=== PATIENT | female | born 1955 | race Caucasian/White ===

== ENCOUNTER → 2016-05-04 | Day surgery (SDC) | payer OTHER ==
[~2016-05-04] MED LIST: Buffered Lidocaine 1% SYR 3ML* 3 ML/SYR SYRINGE INTRADERM ONE; Buffered Lidocaine 1% SYR 3ML* 3 ML/SYR SYRINGE ONE; Bupivacaine 0.25% SDV* 30 ML ONE; Dexamethasone IV* 4 MG/ML 1 ML (4 MG) ONE; EPHEDrine (Pressors)* 50 MG/ML VIAL ONE; Famotidine IV* 10 MG/ML 2 ML (20 mg) IV ONE; Famotidine IV* 10 MG/ML 2 ML (20 mg) ONE; KETAMINE HCL* 50 MG/ML 10 ML VIAL ONE; Ketorolac INJ* 30 MG/ML 1 ML VIAL ONE; Lidocaine 1% INJ* 10 MG/ML 30 ML SDV ONE; Midazolam* 1 MG/ML 5 ML VIAL (5 MG) ONE; Morphine INJ* 2 MG/ML 1 ML CARPUJECT IV PRN; Ondansetron INJ* 2 MG/ML VIAL ONE; PROCHLORPERAZINE INJ 5 MG/ML 2 ML VIAL IV PRN; Propofol* 10 MG/ML 20 ML BTL IV PUSH ONE; fentaNYL* 50 MCG/ML 2 ML VIAL (100 MCG VIAL) IV PRN; fentaNYL* 50 MCG/ML 2 ML VIAL (100 MCG VIAL) ONE; oxyCODONE/Acetamin 5/325 MG* TAB PO PRN
[2016-05-04 11:57] VITALS: BP 117/83
--- NOTE | 2016-05-06 12:04 | OP ---
DATE OF OPERATION: 05/04/16 - [facility] DATE OF : 57 SURGEON: Dr. Rojas. ANESTHESIOLOGIST: Dr. Oneal ANESTHESIA: General endotracheal. PRE-OP DIAGNOSIS: Persistent left Bartholin's duct cyst. POST-OP DIAGNOSIS: Persistent left Bartholin's duct cyst. OPERATIVE PROCEDURE: Left Bartholin's duct cyst marsupialization and biopsy of cyst. ESTIMATED BLOOD LOSS: 30 cc. URINE OUTPUT: Not measured. IV FLUIDS: 1100 cc lactated Ringer's. MATERIALS TO LAB: Biopsy of cyst wall. COMPLICATIONS: None. INDICATIONS: This patient was a 60-year-old 1, para 2, who presented to the clinic last month, referred for a persistent 3 to 4 cm left Bartholin's duct cyst. This had been incised and drained by a previous provider about 2 months earlier, but without any Word catheter or marsupialization performed, so it quickly re-formed after it healed. The patient desired to have a more permanent solution performed. We discussed the options and she desired to proceed with marsupialization. FINDINGS: Approximately 3 to 4 cm left Bartholin's duct cyst. This was filled with a thin fluid which was dark red/brown. The cyst wall was visualized and appeared very smooth and a portion of the wall was biopsied. DESCRIPTION OF PROCEDURE: The risks, benefits, and alternatives were described to the patient and informed consent was obtained. The patient was taken to the operating room with IV running where general anesthesia was induced and found to be adequate. The patient was prepped and draped in the normal sterile fashion in the high [facility]. A time-out was performed. The left Bartholin's duct cyst was palpated and examined under anesthesia. An Allis clamp was used to grasp the hymenal ring and pull it outward so the inner aspect was exposed. An approximately 2.5 cm incision was then made with a 15 blade scalpel after injecting 1% lidocaine over the incision site. This was carried down to the wall of the cyst which was then incised, productive of a significant amount of thin dark fluid. The incision was extended until there was a full 2 to 2.5 cm of cyst opening. The cyst was irrigated and cleaned out. The base of the cyst was grasped with an Allis clamp and a small portion was biopsied. The cyst wall was then sutured to the vaginal epithelium on the inner and outer aspects of the incision. This was done with 3-0 Polysorb in interrupted stitches. The Bovie was used sparingly for a few areas which had some light bleeding. Once the incision sites were sutured over, the bleeding was scant. The procedure was then complete. The patient was cleaned and then returned to the supine position. The patient tolerated the procedure well. Sponge, lap, and needle counts were correct x2. [id number]/[facility] #: [id number] [facility]
== END | disposition home or self-care (01) ==
LOC: OR 07:37
PROVIDERS: ATTEND Obstetrics & Gynecology
DX: N75.0 Cyst of Bartholin's gland (principal)
CPT/HCPCS: 88304; J1100; J1885; J2250; J2405; J2704; J3010

== ENCOUNTER 2016-10-31 19:14 | Emergency (ER) | payer OTHER ==
[2016-10-31 19:30] VITALS: BP 122/83
--- NOTE | 2016-10-31 19:33 | UC ---
Skin Complaint HPI - HPI Summary HPI Summary: 61 YEAR OLD FEMALE PRESENTS WITH A BULLS EYE RASH ON HER LEFT ALCALA SECONDARY TO A TICK BITE. - History of Current Complaint Chief Complaint: UCRash Time Seen by Provider: 10/31/16 19:30 Stated Complaint: TICK BITE RASHES Hx Last Menstrual Period: - Allergy/Home Medications Allergies/Adverse Reactions: Allergies Allergy/AdvReac Type Severity Reaction Status Date / Time Molds & Smuts Allergy Intermediate Congestion Verified 10/31/16 19:30 Pollen Extract Allergy Intermediate Congestion Verified 10/31/16 19:30 Sulfa Drugs Allergy Intermediate Rash And Verified 10/31/16 19:30 Itching Penicillins [PCN] Allergy Nausea And Verified 10/31/16 19:30 Vomiting Review of Systems Constitutional: Negative Skin: Rash, Other - LEFT ALCALA Eyes: Negative ENT: Negative Respiratory: Negative Cardiovascular: Negative Gastrointestinal: Negative Genitourinary: Negative Motor: Negative Neurovascular: Negative Musculoskeletal: Negative Neurological: Negative Psychological: Negative All Other Systems Reviewed And Are Negative: Yes PMH/Surg Hx/FS Hx/Imm Hx Previously Healthy: Yes - Surgical History Surgical History: Yes Surgery Procedure, Year, and Place: 1989-LEFT FOOT NEUROMA. PROCEDURE FOR BARTHOLIN CYST-03/2016 - Social History Alcohol Use: Rare Substance Use Type: None Smoking Status (MU): Never Smoked Tobacco Physical Exam Triage Information Reviewed: Yes Vital Signs: Initial Vital Signs Temp 36.5 C 10/31/16 19:26 Pulse 92 10/31/16 19:26 Resp 16 10/31/16 19:26 BP 122/83 10/31/16 19:26 Pulse Ox 98 10/31/16 19:26 Eye Exam: Normal ENT Exam: Normal Dental Exam: Normal Neck exam: Normal Neck: Positive: 1 Respiratory Exam: Normal Cardiovascular Exam: Normal Abdominal Exam: Normal Musculoskeletal Exam: Normal Neurological Exam: Normal Psychological Exam: Normal Skin Exam: Normal Skin: Positive: rashes, Other - LEFT ALCALA Course/Dx - Diagnoses Provider Diagnoses: TICK BITE. RASH Discharge - Discharge Plan Condition: Stable Disposition: HOME Prescriptions: DOXYcycline CAP(*) [DOXYcycline 100MG CAP(*)] 100 mg PO BID #56 cap Patient Education Materials: Tick Bite (ED), Lyme Disease (ED), Insect Bite or Sting (ED) Referrals: Orlin Moon MD [Primary Care Provider] -
--- NOTE | 2016-11-02 16:34 | ED ---
Progress - Progress Note Progress Note: Pt's lyme serology neg Pt call pt and update results Please advise pt to f/u with PCP regarding ongoing treatment with doxy Tammie 11/02/16 [id number] Course/Dx - Diagnoses Provider Diagnoses: Rash
== END 2016-10-31 19:40 | disposition home or self-care (01) ==
LOC: UCEAST 19:14
DX: S80.862A Insect bite (nonvenomous), left lower leg, initial encounter (principal); W57.XXXA Bitten or stung by nonvenomous insect and other nonvenomous arthropods, initial encounter; Y93.9 Activity, unspecified; Y92.9 Unspecified place or not applicable; Y99.9 Unspecified external cause status; R21 Rash and other nonspecific skin eruption
CPT/HCPCS: 86618; 99212; G0463

== ENCOUNTER 2019-03-21 13:38 | Emergency (ER) | payer OTHER ==
[2019-03-21 13:45] VITALS: BP 123/81
--- NOTE | 2019-03-21 13:52 | UC ---
Complaint Female HPI - HPI Summary HPI Summary: 63 yo female presents with UTI symptoms. She tells me that for the last 2 days she has had burning with urination, bladder pressure, and urinary frequency. She has had many UTIs in the past and states this feels the same. No hx of kidney stones. She denies abdominal pain, n/v, flank pain, vaginal bleeding or discharge. - History Of Current Complaint Chief Complaint: UCGU Stated Complaint: FREQUENT URINATON Time Seen by Provider: 03/21/19 13:52 Hx Obtained From: Patient Hx Last Menstrual Period: Onset/Duration: Sudden Onset Severity Initially: Mild Severity Currently: Moderate Pain Intensity: 6 Pain Scale Used: 0-10 Numeric - Allergies/Home Medications Allergies/Adverse Reactions: Allergies Allergy/AdvReac Type Severity Reaction Status Date / Time doxycycline Allergy GI Upset Verified 03/21/19 13:49 metronidazole [From Flagyl] Allergy GI Upset Verified 03/21/19 13:48 Penicillins Allergy nausea Verified 03/21/19 13:48 vomiting pollen extracts Allergy Congestion Verified 03/21/19 13:48 Sulfa (Sulfonamide Allergy rash and Verified 03/21/19 13:48 Antibiotics) itch molds and smuts Allergy Congestion Uncoded 03/21/19 13:48 Home Medications: Home Medications Levothyroxine TAB* [Synthroid 25 MCG TAB*] 1 tab PO BID 03/21/19 [History Confirmed 03/21/19] Liothyronine TAB* [Cytomel TAB*] 5 mcg PO DAILY 03/21/19 [History Confirmed ] PMH/Surg Hx/FS Hx/Imm Hx Endocrine History: Hypothyroidism - Surgical History Surgical History: Yes Surgery Procedure, Year, and Place: 1989-LEFT FOOT NEUROMA. PROCEDURE FOR BARTHOLIN CYST-03/2016 - Family History Known Family History: Positive: Non-Contributory - Social History Lives: With Family Alcohol Use: Rare Substance Use Type: None Smoking Status (MU): Never Smoked Tobacco Review of Systems All Other Systems Reviewed And Are Negative: No Constitutional: Positive: Negative Skin: Positive: Negative Respiratory: Positive: Negative Cardiovascular: Positive: Negative Gastrointestinal: Positive: Negative Genitourinary: Positive: Dysuria Neurovascular: Positive: Negative Neurological: Positive: Negative Psychological: Positive: Negative Physical Exam - Summary Physical Exam Summary: GENERAL: NAD. WDWN. No pain distress. SKIN: No rashes, sores, lesions, or open wounds. NECK: Supple. Nontender. No lymphadenopathy. CHEST: CTAB. No r/r/w. No accessory muscle use. Breathing comfortably and in no distress. CV: RRR. Pulses intact. Cap refill <2seconds ABDOMEN: Soft. NTTP. No distention or guarding. No CVA tenderness. Bowel sounds present NEURO: Alert. PSYCH: Age appropriate behavior. Triage Information Reviewed: Yes Vital Signs: Initial Vital Signs Temp 96.8 F 03/21/19 13:41 Pulse 82 03/21/19 13:41 Resp 17 03/21/19 13:41 BP 123/81 03/21/19 13:41 Pulse Ox 100 03/21/19 13:41 Laboratory Tests 03/21/19 14:22 POC Urine Color Light yellow POC Urine Clarity Clear POC Urine pH 5.5 POC Ur Specif [place] <= 1.005 L POC Urine Protein Negative POC Ur Glucose (UA) Negative POC Urine Ketones Negative POC Urine Blood 3+ A POC Urine Nitrite Negative POC Urine Bilirubin Negative POC Urine Urobilinogen 0.2 POC U Leukocyte Esteras Negative Vital Signs Reviewed: Yes Complaint Female Dx - Course Course Of Treatment: UA with 3+ blood, but no leuks or nit. Discussed with pt and she states her symptoms feel the same as when she has a UTI. Will treat with macrobid at this time and send her urine for culture and adjust treatment as needed based on results. She has never seen Urology in the past - discussed that if urine culture is negative and she is still symptomatic, may refer her to Urology for further eval. - Differential Dx/Diagnosis Provider Diagnosis: Dysuria Discharge ED - Sign-Out/Discharge Documenting (check all that apply): Patient Departure All imaging exams completed and their final reports reviewed: No Studies - Discharge Plan Condition: Stable Disposition: HOME Prescriptions: Fluconazole 150 MG TAB* [Diflucan 150 MG TAB*] 150 mg PO ONCE #2 tablet Nitrofurantoin Monohyd/M-Cryst [Macrobid 100 mg Capsule] 100 mg PO BID #10 cap Patient Education Materials: Dysuria (ED) Referrals: Orlin Moon MD [Primary Care Provider] - Additional Instructions: If you develop a fever, shortness of breath, chest pain, new or worsening symptoms - please call your PCP or go to the ED immediately. - Billing Disposition and Condition Condition: STABLE Disposition: Home - Attestation Statements Provider Attestation: Per institutional requirements, I have reviewed the chart, however, I was not consulted specifically or made aware of this patient by the midlevel provider. I did not personally evaluate, interact with , or disposition this patient.
--- NOTE | 2019-03-23 15:02 | UC ---
- Progress Note Progress Note: Urine culture negative. Please call pt and if her urine symptoms have not resolved with anbx - recommend f/u with Urology as discussed at visit. Course/Dx - Diagnoses Provider Diagnoses: Dysuria Discharge ED - Sign-Out/Discharge Documenting (check all that apply): Post-Discharge Follow Up All imaging exams completed and their final reports reviewed: No Studies - Discharge Plan Condition: Stable Disposition: HOME Prescriptions: Fluconazole 150 MG TAB* [Diflucan 150 MG TAB*] 150 mg PO ONCE #2 tablet Nitrofurantoin Monohyd/M-Cryst [Macrobid 100 mg Capsule] 100 mg PO BID #10 cap Patient Education Materials: Dysuria (ED) Referrals: Orlin Moon MD [Primary Care Provider] - Additional Instructions: If you develop a fever, shortness of breath, chest pain, new or worsening symptoms - please call your PCP or go to the ED immediately. - Billing Disposition and Condition Condition: STABLE Disposition: Home
== END 2019-03-21 14:51 | disposition home or self-care (01) ==
LOC: UCEAST 13:38
DX: R30.0 Dysuria (principal); E03.9 Hypothyroidism, unspecified; Z88.0 Allergy status to penicillin; Z88.1 Allergy status to other antibiotic agents; Z88.2 Allergy status to sulfonamides; Z91.09 Other allergy status, other than to drugs and biological substances; Z79.890 Hormone replacement therapy
CPT/HCPCS: 81003; 87086; 99212; G0463

== ENCOUNTER 2019-03-23 16:18 | Emergency (ER) | payer OTHER ==
[2019-03-23] MEDS ORDERED: NS 0.9% 1000 ML** 1,000 ML IV ONE (16:31)
--- NOTE | 2019-03-23 16:31 | ED ---
Back Pain - HPI Summary HPI Summary: Pt. is a 63 y.o female who presents to the ER for left flank/abd. pain that started today. Pt. states she had dysuria 2 days ago and was seen at and started on Macrobid for UTI. U/A showed RBCs. Urine culture negative. Pt. states today she developed severe left sided flank pain that radiated to LLQ. Associated sxs of nausea without vomiting. Denies chest pain, SOB. Past hx of hypothyroidism. Sxs are moderate in severity. No current modifying factors. - History of Current Complaint Chief Complaint: EDFlankPain Stated Complaint: ABD AND BACK PAIN PER PT Time Seen by Provider: 03/23/19 16:25 Hx Obtained From: Patient Hx Last Menstrual Period: Pain Intensity: 10 - Allergies/Home Medications Allergies/Adverse Reactions: Allergies Allergy/AdvReac Type Severity Reaction Status Date / Time doxycycline Allergy GI Upset Verified 03/23/19 16:24 metronidazole [From Flagyl] Allergy GI Upset Verified 03/23/19 16:24 Penicillins Allergy nausea Verified 03/23/19 16:24 vomiting pollen extracts Allergy Congestion Verified 03/23/19 16:24 Sulfa (Sulfonamide Allergy rash and Verified 03/23/19 16:24 Antibiotics) itch molds and smuts Allergy Congestion Uncoded 03/21/19 13:48 PMH/Surg Hx/FS Hx/Imm Hx Previously Healthy: Yes Endocrine/Hematology History: 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 Denies: Hx Diabetes Cardiovascular History: Denies: Hx Hypertension, Hx Pacemaker/ICD Respiratory History: Denies: Hx Asthma, Hx Chronic Obstructive Pulmonary Disease (COPD) GI History: Denies: Hx Ulcer Musculoskeletal History: Reports: Hx Arthritis - OSTEO-HIPS, Hx Bursitis - HIPS AT TIMES, Hx Scoliosis Sensory History: Reports: Hx Contacts or Glasses - GLASSES Denies: Hx Hearing Aid Opthamlomology History: Reports: Hx Contacts or Glasses - GLASSES Neurological History: Denies: Hx Headaches, Other Neuro Impairments/Disorders - Surgical History Surgery Procedure, Year, and Place: 1989-LEFT FOOT NEUROMA. PROCEDURE FOR BARTHOLIN CYST-03/2016 Hx Anesthesia Reactions: No Infectious Disease History: No Infectious Disease History: Denies: Hx Hepatitis, Hx Human Immunodeficiency Virus (HIV), Traveled Outside the [place] in Last 30 Days - Family History Known Family History: Positive: Non-Contributory - Social History Occupation: Employed Full-time Lives: With Family Alcohol Use: Rare Substance Use Type: Reports: None Smoking Status (MU): Never Smoked Tobacco Review of Systems Constitutional: Negative Negative: Fever ENT: Negative Cardiovascular: Negative Negative: Palpitations, Chest Pain Respiratory: Negative Negative: Shortness Of Breath, Cough Positive: Abdominal Pain, Nausea. Negative: Vomiting, Diarrhea Positive: dysuria, flank pain. Negative: hematuria Neurological: Negative All Other Systems Reviewed And Are Negative: Yes Physical Exam Triage Information Reviewed: Yes Vital Signs On Initial Exam: Initial Vitals Temp Pulse Resp BP Pulse Ox 98.4 F 68 16 133/86 95 03/23/19 16:20 03/23/19 16:20 03/23/19 16:20 03/23/19 16:20 03/23/19 16:20 Vital Signs Reviewed: Yes Appearance: Positive: Pain Distress - Pt. lying on right side in bed, appears in pain but nontoxic. present. Skin: Positive: Warm, Dry Head/Face: Positive: Normal Head/Face Inspection Eyes: Positive: Normal, EOMI Neck: Positive: Supple Respiratory/Lung Sounds: Positive: Clear to Auscultation, Breath Sounds Present Cardiovascular: Positive: Normal, RRR Abdomen Description: Positive: CVA Tenderness (R) Neurological: Positive: Normal, CN Intact II-III Psychiatric: Positive: Affect/Mood Appropriate Procedures - Sedation Patient Received Moderate/Deep Sedation with Procedure: No Diagnostics - Vital Signs Vital Signs Temp Pulse Resp BP Pulse Ox 03/23/19 16:20 98.4 F 68 16 133/86 95 - Laboratory Result Diagrams: 03/23/19 16:43 03/23/19 16:43 Lab Statement: Any lab studies that have been ordered have been reviewed, and results considered in the medical decision making process. Back Pain Course/Dx - Course Course Of Treatment: Pt. with left flank pain and dysuria. Afebrile. Urine culture negative. Suspect urolithiasis. Pain medication and fluids ordered. Will obtain labs, u/a and CT scan. CT pr radiology: Impression: LEFT NEPHROLITHIASIS INCLUDING A 0.3 CM LEFT UVJ STONE WITH MINIMAL LEFT HYDROURETER. 1718: Pt. feeling much better. CBC unremarkable. Pending CMP and U /A. Pt. will be signed out to Tobias Gonzalez, PAC. - Diagnoses Differential Diagnosis/HQI/PQRI: Positive: Fracture, Herniated Disc, Renal Colic , Strain, Sprain Provider Diagnoses: Urolithiasis Discharge ED - Sign-Out/Discharge Documenting (check all that apply): Sign-Out Patient Signing out patient TO: Tobias Gonzalez - Discharge Plan Condition: Improved Disposition: HOME Patient Education Materials: Kidney Stones (ED) Referrals: Orlin Moon MD [Primary Care Provider] - Salazar Mejias MD [Medical Doctor] - Additional Instructions: Follow up with urology if symptoms do not improve within one week Increase fluids Medication as directed Strain urine Return to ER for uncontrollable pain, vomiting, fever, or if concerned - Billing Disposition and Condition Condition: IMPROVED Disposition: Home - Attestation Statements Provider Attestation: I was available for consult. This patient was seen by the WALTER. The patient was not presented to, seen by, or examined by me. Osei Gaspar MD
[2019-03-23] MEDS ORDERED: Ondansetron INJ* 2 MG/ML VIAL IV ONE (16:32)
[2019-03-23] MEDS ORDERED: Ketorolac INJ* 30 MG/ML 1 ML VIAL IV PUSH ONE (16:32)
[2019-03-23] MEDS ORDERED: Morphine 4 MG/ML VIAL (1 ml) 4 MG/ML VIAL IV ONE (16:32)
[2019-03-23 17:00] LABS: ABS Basophils 0.1 10^3/ul (0-0.2); ABS Eosinophils 0.3 10^3/ul (0-0.6); ABS Lymphocytes 2.1 10^3/ul (1.0-4.8); ABS Monocytes 0.5 10^3/ul (0-0.8); Eosinophil % 3.6 %; Hematocrit 39 % (35-47); Hemoglobin 13.4 g/dL (12.0-16.0); Lymphocyte % 30.5 %; Mean Corpuscular HGB Conc 35 g/dL (31-36); Mean Corpuscular Hemoglobin 31 pg (27-31); Mean Corpuscular Volume 87 fL (80-97); Mean Platelet Volume 7.8 fL (7.4-10.4); Nucleated Red Blood Cells % 0.1; Platelet Count 240 10^3/uL (150-450); Red Cell Distribution Width 14 % (10-15)
[2019-03-23 17:17] LABS: ALT 18 U/L (7-52); AST 19 U/L (13-39); Albumin/Globulin Ratio 1.6 (1-3); Alkaline Phosphatase 54 U/L (34-104); Anion Gap 7 mmol/L (2-11); Blood Urea Nitrogen 12 mg/dL (6-24); C Reactive Protein < 1.00 mg/L (<8.01); CO2 Carbon Dioxide 25 mmol/L (22-32); Calcium 9.1 mg/dL (8.6-10.3); Chloride 105 mmol/L (101-111); EGFR African American 80.9 (>60); EGFR Non-African American 66.9 (>60); Globulin 2.5 g/dL (2-4); Glucose 108 mg/dL (70-100); Potassium 3.5 mmol/L (3.5-5.0); Sodium 137 mmol/L (135-145); Total Protein 6.5 g/dL (6.4-8.9)
--- NOTE | 2019-03-23 17:30 | ED ---
Progress - Progress Note Progress Note: Urinalysis returned showing no evidence of UTI. Patient was stable and discharged home. Patient was given prescription for Zofran, tamsulosin, Vicodin. Patient was told to follow up with urology within 1 week. Course/Dx - Course Course Of Treatment: Pt. with left flank pain and dysuria. Afebrile. Urine culture negative. Suspect urolithiasis. Pain medication and fluids ordered. Will obtain labs, u/a and CT scan. CT pr radiology: Impression: LEFT NEPHROLITHIASIS INCLUDING A 0.3 CM LEFT UVJ STONE WITH MINIMAL LEFT HYDROURETER. 1718: Pt. feeling much better. CBC unremarkable. Pending CMP and U /A. Pt. will be signed out to MARIANO Olivia. - Diagnoses Provider Diagnoses: Urolithiasis Discharge ED - Sign-Out/Discharge Documenting (check all that apply): Patient Departure - Discharge Plan Condition: Improved Disposition: HOME Prescriptions: Hydrocodone/Acetaminophen [Hydrocodone-Acetamin 5-325 mg] 1 each PO Q6HR #12 tablet MDD 4 Ondansetron ODT TAB* [Zofran 4 MG Odt TAB*] 4 mg PO Q6H PRN #12 tab.odt PRN Reason: Nausea Tamsulosin CAP* [Flomax CAP*] 0.4 mg PO DAILY #5 cap Patient Education Materials: Kidney Stones (ED) Referrals: Orlin Moon MD [Primary Care Provider] - Salazar Mejias MD [Medical Doctor] - 4 Days Additional Instructions: Follow up with urology if symptoms do not improve within one week Increase fluids Medication as directed Strain urine Return to ER for uncontrollable pain, vomiting, fever, or if concerned Take 600mg ibuprofen every 6 hours as needed for pain. For pain that is not controlled with ibuprofen please take one tab of hydrocodone/acetaminophen every 6 hours as needed. - Billing Disposition and Condition Condition: IMPROVED Disposition: Home
[2019-03-23 18:30] LABS: Urine Appearance Clear; Urine Bilirubin Negative (Negative); Urine Blood 2+ (Negative); Urine Color Yellow; Urine Glucose Negative (Negative); Urine Ketones Negative (Negative); Urine Nitrite Negative (Negative); Urine Protein Negative (Negative); Urine Specific Gravity 1.006 (1.010-1.030); Urine Urobilinogen Negative (Negative)
[2019-03-23 18:33] LABS: Urine Bacteria Absent (Absent); Urine Red Blood Cell 1+(3-5/hpf) (Absent); Urine White Blood Cell Absent (Absent)
[2019-03-23 18:48] VITALS: BP 119/74
== END 2019-03-23 18:49 | disposition home or self-care (01) ==
LOC: ED 16:18
DX: N13.2 Hydronephrosis with renal and ureteral calculous obstruction (principal); E06.3 Autoimmune thyroiditis; Z88.1 Allergy status to other antibiotic agents; Z88.0 Allergy status to penicillin; Z88.2 Allergy status to sulfonamides
CPT/HCPCS: 36415; 74176; 80053; 81003; 81015; 83690; 85025; 86140; 96361; 96374; 96375; 99283; J1885; J2270; J2405

== ENCOUNTER 2019-06-05 10:59 | Observation (INO) | payer OTHER ==
--- NOTE | 2019-05-26 12:03 | HP ---
PREOPERATIVE HISTORY AND PHYSICAL: DATE OF SURGERY/ADMISSION: 06/05/19 - [facility] DATE OF OFFICE VISIT/ENCOUNTER: 05/23/19 ATTENDING SURGEON: Ashley Kat MD * (DICTATED BY ARACELI YANEZ) PROCEDURE: Right total hip arthroplasty. CHIEF COMPLAINT: Right hip pain. HISTORY OF PRESENT ILLNESS: Ms. Guzman is a 63-year-old female with end- stage osteoarthritis of the right hip. She has failed conservative treatment and has elected to proceed with a right total hip arthroplasty. PAST MEDICAL HISTORY: 1. Hypothyroidism. 2. History of nephrolithiasis. 3. History of Lyme disease in 2018. PAST SURGICAL HISTORY: Left foot neuroma. MEDICATIONS: 1. 5-HTP. 2. L-Tryptophan. 3. Levothyroxine sodium 25 mg daily. 4. Multivitamin. 5. Niacinamide 500 mg. 6. Nystatin. 7. [place]. 8. Zyflamend. ALLERGIES: SULFA drugs cause hives. DOXYCYCLINE, METRONIDAZOLE, and PENICILLIN cause increase in liver enzymes per the patient's report. FAMILY MEDICAL HISTORY: Heart disease. SOCIAL HISTORY: The patient lives with her spouse. 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 She denies tobacco use and recreational drug use. She drinks alcohol on special occasions. REVIEW OF SYSTEMS: Negative for general, cephalic, cardiovascular, respiratory , GI/, other musculoskeletal, integumentary, endocrine, neurologic, and hematologic symptoms. Infectious disease negative for MRSA, hepatitis C, HIV. PHYSICAL EXAMINATION GENERAL: Well-developed, well-nourished 63-year-old female in no acute distress. She walks with a cane favoring her right leg. VITAL SIGNS: Height 5 feet 8-1/2 inches, weight 129 pounds. Pulse rate 84, blood pressure 106/66. HEENT: Normocephalic, atraumatic. Pupils are equal, round, and reactive to light and accommodation. Extraocular movements are intact. Throat is clear. NECK: Supple. No palpable lymph nodes. PULMONARY: Lungs are clear to auscultation bilaterally. No wheezes, rales, or rhonchi. CARDIOVASCULAR: Regular rate and rhythm. S1, S2. No murmurs, rubs, or gallops. No edema. ABDOMEN: Positive bowel sounds, soft, nontender. MUSCULOSKELETAL: On exam of her right lower extremity, skin is intact. There are no open wounds or abrasions. She walks with a mild antalgic gait favoring her right hip. She has 90 degrees of hip flexion, 0 degrees of internal rotation, 30 degrees of external rotation, all reproducing groin pain. Distally there is no edema, varicosities or hyperreflexia. Full sensation to light touch in all nerve distributions and 2+ palpable dorsalis pedis pulse. NEUROLOGIC: Alert and oriented x3. Cranial nerves II through XII are intact. Sensation is intact to light touch. ASSESSMENT AND PLAN: Ms. Guzman is a 63-year-old female with end-stage osteoarthritis of the right hip. She has failed conservative treatment and had elected to proceed with a right total hip arthroplasty. The surgery is scheduled for 06/05/[address] Kat discussed the risks and benefits of the surgery at today's visit and all of her questions were answered. She will follow up with Dr. Kat 2 weeks after surgery. ARACELI YANEZ [id number]/[facility] #: [id number]
[~2019-06-05 10:59] MED LIST changes: +Acetaminophen TAB* 325 MG PO ONE; -Buffered Lidocaine 1% SYR 3ML* 3 ML/SYR SYRINGE INTRADERM ONE; -Buffered Lidocaine 1% SYR 3ML* 3 ML/SYR SYRINGE ONE; +Buffered Lidocaine 1% SYRIN* 1 ML/SYRINGE INTRADERM ONE; -Bupivacaine 0.25% SDV* 30 ML ONE; -Dexamethasone IV* 4 MG/ML 1 ML (4 MG) ONE; -EPHEDrine (Pressors)* 50 MG/ML VIAL ONE; -Famotidine IV* 10 MG/ML 2 ML (20 mg) IV ONE; -Famotidine IV* 10 MG/ML 2 ML (20 mg) ONE; -KETAMINE HCL* 50 MG/ML 10 ML VIAL ONE; -Ketorolac INJ* 30 MG/ML 1 ML VIAL ONE; +Lactated Ringers 1000 ML Bag* 1,000 ML IV SCH; -Lidocaine 1% INJ* 10 MG/ML 30 ML SDV ONE; -Midazolam* 1 MG/ML 5 ML VIAL (5 MG) ONE; -Morphine INJ* 2 MG/ML 1 ML CARPUJECT IV PRN; -Ondansetron INJ* 2 MG/ML VIAL ONE; -PROCHLORPERAZINE INJ 5 MG/ML 2 ML VIAL IV PRN; -Propofol* 10 MG/ML 20 ML BTL IV PUSH ONE; +Tranexamic Acid 1,000 MG in NS 0.9% 50 ML* (outpatient use) IV SCH; +celeCOXIB CAP* 200 MG PO ONE; -fentaNYL* 50 MCG/ML 2 ML VIAL (100 MCG VIAL) IV PRN; -fentaNYL* 50 MCG/ML 2 ML VIAL (100 MCG VIAL) ONE; -oxyCODONE/Acetamin 5/325 MG* TAB PO PRN
[2019-06-05] MEDS ORDERED: Acetaminophen TAB* 325 MG ONE (11:20)
[2019-06-05] MEDS ORDERED: celeCOXIB CAP* 200 MG ONE (11:21)
[2019-06-05] MEDS ORDERED: Clindamycin 900 MG/D5W BAG(*) 900 MG/50 ML BAG IVPB ONE (11:21)
[2019-06-05] MEDS ORDERED: fentaNYL* 50 MCG/ML 2 ML VIAL (100 MCG VIAL) ONE (12:27)
[2019-06-05] MEDS ORDERED: Midazolam* 1 MG/ML 2 ML VIAL (2 MG) ONE (12:27)
[2019-06-05] MEDS ORDERED: Lidocaine 2% PF * 5 ML VIAL ONE (12:29)
[2019-06-05] MEDS ORDERED: Propofol* 500 MG/50 ML BTL ONE (12:31)
[2019-06-05] MEDS ORDERED: ROPIVACAINE 5 MG/ML 30 ML BTL (0.5%) ONE (12:35)
[2019-06-05] MEDS ORDERED: EPHEDrine (Pressors)* 50 MG/ML VIAL ONE (13:55)
[2019-06-05] MEDS ORDERED: Phenylephrine 10 MG/ML VIAL* 1 ML VIAL ONE (14:01)
[2019-06-05] MEDS ORDERED: Polyethylene Glycol 3350* 17 GM PACKET PO PRN (14:24)
[2019-06-05] MEDS ORDERED: Ondansetron TAB* 4 MG PO PRN (14:24)
[2019-06-05] MEDS ORDERED: Ondansetron INJ* 2 MG/ML VIAL IV PRN (14:24)
[2019-06-05] MEDS ORDERED: Magnesium Hydroxide LIQ* 30 ML UDC PO PRN (14:24)
[2019-06-05] MEDS ORDERED: Ondansetron ODT TAB* 4 MG PO PRN (14:24)
[2019-06-05] MEDS ORDERED: Morphine INJ* 2 MG/ML 1 ML SYRINGE (TWO MG - NEW SYRINGE VERSION) IV PRN (14:24)
[2019-06-05] MEDS ORDERED: diPHENhydraMINE PO* 25 MG PO PRN (14:24)
[2019-06-05] MEDS ORDERED: diPHENhydraMINE IV* 50 MG/ML 1 ml VIAL (BENADRYL) IV PRN ×2 (14:24→15:20)
[2019-06-05] MEDS ORDERED: Propofol* 10 MG/ML 20 ML BTL ONE (14:31)
[2019-06-05] MEDS ORDERED: Ropivacaine 0.2% * 2 MG/ML VIAL ONE (15:01)
[2019-06-05] MEDS ORDERED: PROCHLORPERAZINE INJ 5 MG/ML 2 ML VIAL IV PRN (15:20)
[2019-06-05] MEDS ORDERED: HYDROmorphone INJ1* 1 MG/ML SYRINGE IV PRN (15:20)
[2019-06-05] MEDS ORDERED: Naloxone* 0.4 MG/ML 1 ML VIAL IV PRN (15:20)
[2019-06-05] MEDS ORDERED: oxyCODONE TAB* 5 MG TAB PO PRN (15:20)
[2019-06-05] MEDS: traMADol TAB* 50 MG PO PRN (17:10)
[2019-06-05] MEDS: Lactated Ringers 1000 ML Bag* 1,000 ML IV SCH (17:11)
[2019-06-05] MEDS: Liothyronine TAB* 25 MCG PO SCH ×2 (17:17→19:30)
[2019-06-05] MEDS: oxyCODONE/Acetamin 5/325 MG* TAB PO PRN (19:31)
--- NOTE | 2019-06-05 21:08 | OP ---
Operative Report - Blank - Operative Report Date of Operation: 06/05/19 Note: ADRIEL TABOR 1955 Date Of Surgery: 06/05/19 Ashley Kat MD Framing Carpenter: Vineet CHARLES did help throughout the procedure with preparation of the hip, wound retraction, manipulation of the hip, and wound closure. Anesthesiologist: Demetra VAUGHAN Anesthesia Type: Spinal Preoperative Diagnosis: Right severe degenerative osteoarthritis of the hip Postoperative Diagnosis: As above Procedure Performed: Right Total Hip Arthroplasty Complications: None Specimen: Femoral head and acetabular reamings sent to pathology. Hardware used: This is uncemented [place] total hip arthroplasty hardware for the femur a size 4 accolade II with 127 neck angle femoral component, for the acetabulum a size 52E trident II tritanium cluster hole shell, two 15mm screws, for the insert a size 36E trident X3 insert, and for the femoral head a size 36 + 5 biolox ceramic V40 femoral head. Brief history/Indication: ADRIEL TABOR was known in clinic and had a history of severe right hip pain. She failed conservative treatment with anti- inflammatories, pain pills, intra-articular injections and physical therapy. She elected to undergo right total hip arthroplasty due to continued pain and decreased quality of life. Radiographs showed severe end stage osteoarthritis of the hip with bone on bone contact. Informed consent was obtained from the patient. She understood the risks of surgery included but were not limited to: bleeding, infection, damage to nearby structures, intraoperative fracture, nerve palsy, failure of the hardware, early loosening, stiffness or loss of motion, dislocation, leg length discrepancy, anesthesia complications, stroke, heart attack, blood clot and . She wished to proceed. Intra-Operative findings: Intraoperatively the patient was noted to have severe loss of cartilage of the acetabulum and femoral head. Description of the Procedure: ADRIEL TABOR was identified in the preanesthesia unit. Her right hip was marked as the correct operative side. Informed consent was signed and placed in the chart. The patient was taken to the operating room and placed under anesthesia without complication. A garcia catheter was placed. The patient was placed on the peg board with all bony prominences well padded. The right lower extremity was prepped and draped in the usual sterile fashion. Preoperative time -out was made to correctly identify the patient, side and site. Appropriate intraoperative antibiotics were given within one hour of incision. A standard posterior incision was made and carried sharply down to the lateral fascia. A new 10 blade was used to make an incision in the fascia in line with the skin incision. A charnley retractor was placed. The piriformis and conjoined tendons were identified and elevated off the posterolateral femur using electrocautery. These were tagged with number 5 Ethibond. Next electrocautery was used to make a posterolateral capsular flap and this was tagged with number 5 Ethibonds. The hip was carefully dislocated. Lesser trochanter to the center of the femoral head was measured at 55 mm. The oscillating saw was used to make the femoral neck cut. The femoral head was carefully removed. The femur was retracted anteriorly and the acetabular retractors were placed. Long-handled knife was used to sharply remove any remaining labrum from the acetabular rim. The acetabulum was sequentially reamed up to a size 52. A bleeding subchondral bone bed was obtained. A trial liner was placed and had excellent fit and stability. A 52 E cup with 2 screws was placed and had excellent stability with appropriate anteversion and abduction angle. A size 36E liner was impacted into the acetabular shell. The liner was checked for stability and was stable. Next attention was turned to preparation of the femoral canal. A canal finder was used to enter the proximal femur. The femoral canal was sequentially broached up to a size 4 femoral broach trial. A trial neck and 36 + 5 trial femoral head was chosen. Lesser trochanter to center of the femoral head measurement was satisfactory. The hip was reduced and taken through a range of motion. The hip was stable in all positions with good soft tissue tension and appropriate leg lengths. The hip was dislocated and all trials were removed. The final implant chosen was a accolade II size 4. This stem was impacted into the femoral canal without difficulty. The stem was stable with appropriate anteversion. The femoral head chosen was a 36 +5 ceramic head. The head was impacted onto the femoral neck without difficulty. The final lesser trochanter to center of the femoral head measurement was satisfactory. The hip was reduced and taken through a range of motion. The hip was stable in all positions with good soft tissue tension and appropriate leg lengths. The hip was copiously irrigated with sterile saline. The previously tagged capsule and tendons were repaired to the posterolateral femur through two trochanteric drill holes. The lateral fascia layer was closed using number 1 vicryls. The rest of the incision was closed in a layered fashion using 0 and 2-0 vicryls. The skin was closed using 3-0 monocryl suture and Dermabond. Sterile adaptic, 4x4s and paper tape was used to cover the incision. The patients anesthesia was reversed without difficulty. She was taken to the PACU in stable condition. Intended weight-bearing will be as tolerated with posterior hip precautions.
[2019-06-05] MEDS: oxyCODONE TAB* 5 MG TAB PO PRN (21:09)
[2019-06-05] MEDS: Magnesium Hydroxide LIQ* 30 ML UDC PO SCH (21:10)
[2019-06-05] MEDS: Docusate CAP* 100 MG PO SCH (21:10)
[2019-06-05] MEDS: Clindamycin 600 MG/D5W BAG(*) 600 MG/50 ML BAG IV SCH (21:11)
[2019-06-05] MEDS: Acetaminophen TAB* 325 MG PO SCH (21:18)
[2019-06-05] MEDS: Cyclobenzaprine TAB* 10 MG PO PRN (22:28)
[2019-06-06] MEDS: oxyCODONE/Acetamin 5/325 MG* TAB PO PRN ×2 (00:21→12:49)
[2019-06-06] MEDS: traMADol TAB* 50 MG PO PRN (00:22)
[2019-06-06] MEDS: oxyCODONE TAB* 5 MG TAB PO PRN ×2 (03:19→09:10)
[2019-06-06] MEDS: Lactated Ringers 1000 ML Bag* 1,000 ML IV SCH ×2 (03:20→19:19)
[2019-06-06] MEDS: Levothyroxine TAB* 25 MCG TAB PO SCH (05:31)
[2019-06-06] MEDS: Liothyronine TAB* 25 MCG PO SCH ×2 (05:32→15:47)
[2019-06-06] MEDS: Clindamycin 600 MG/D5W BAG(*) 600 MG/50 ML BAG IV SCH ×2 (05:34→12:49)
[2019-06-06] MEDS: Acetaminophen TAB* 325 MG PO SCH ×3 (06:01→23:14)
[2019-06-06 07:08] LABS: Hematocrit 32 % (35-47); Hemoglobin 11.2 g/dL (12.0-16.0); Mean Platelet Volume 7.2 fL (7.4-10.4); Platelet Count 173 10^3/uL (150-450)
[2019-06-06 07:20] LABS: BUN/Creatinine Ratio 11.3 (8-20); Calcium 8.1 mg/dL (8.6-10.3); EGFR African American 100.9 (>60); EGFR Non-African American 83.4 (>60); Potassium 3.8 mmol/L (3.5-5.0)
[2019-06-06] MEDS: Docusate CAP* 100 MG PO SCH ×2 (09:09→20:45)
[2019-06-06] MEDS: Vitamin THERAPEUTIC TAB PO SCH (09:09)
[2019-06-06] MEDS: Apixaban* 2.5 MG TAB PO SCH ×2 (09:10→20:45)
[2019-06-06] MEDS: Magnesium Hydroxide LIQ* 30 ML UDC PO SCH ×2 (09:10→19:31)
--- NOTE | 2019-06-06 10:01 | PN ---
Progress Note - Progress Note Date of Service: 06/06/19 SOAP: Subjective: [Pt was seen this morning sitting up in bed. She states that she is a little tired from PT this morning. She states that pain is well controlled at this point. She denies any numbness or tingling, no other joint pain. She denies any nausea or vomiting. ] Objective: [General: pt is alert and oriented x3. NAD. MSK, RLE: Dressing is c/d/i. + df/pf. NVI distally. Calves are soft and non tender. 2+ DP pulse. Vital Signs Temp 99.3 F 06/06/19 07:19 Pulse 79 06/06/19 07:19 Resp 18 06/06/19 09:10 BP 93/55 06/06/19 07:19 Pulse Ox 98 06/06/19 07:19 Intake & Output 06/05/19 06/06/19 06/06/19 18:59 06:59 18:59 Intake Total 1200 850 50 Output Total 1460 1405 Balance -260 -555 50 Weight 132 lb 8 oz Intake: IV Fluids 1200 LR 1200 IVPB 50 Oral 850 Output: Blake 1350 1405 Estimated Blood Loss 110 ] Assessment: [POD 1 RTHA ] Plan: [PT today Continue with pain medication as needed Will consider DC today should she meet goals with PT this afternoon. Will change dressing today if she goes home.]
[2019-06-06] MEDS: Calcium Carbonate CHEW TAB* 500 MG (TUMS) PO SCH ×2 (14:22→20:45)
[2019-06-06] MEDS: Cyclobenzaprine TAB* 10 MG PO PRN (19:24)
[2019-06-07] MEDS: oxyCODONE TAB* 5 MG TAB PO PRN (01:50)
[2019-06-07] MEDS: Lactated Ringers 1000 ML Bag* 1,000 ML IV SCH (05:09)
[2019-06-07] MEDS: Liothyronine TAB* 25 MCG PO SCH (05:09)
[2019-06-07] MEDS: Levothyroxine TAB* 25 MCG TAB PO SCH (05:10)
[2019-06-07 05:55] LABS: Hematocrit 31 % (35-47); Hemoglobin 10.8 g/dL (12.0-16.0); Mean Platelet Volume 7.4 fL (7.4-10.4); Platelet Count 160 10^3/uL (150-450)
[2019-06-07 07:23] VITALS: BP 101/62
--- NOTE | 2019-06-07 07:34 | PN ---
Progress Note - Progress Note Date of Service: 06/07/19 SOAP: Subjective: resting comfortably in bed, pain well controlled, no complaints Objective: Vital Signs Temp Pulse Resp BP Pulse Ox 98.6 F 91 16 101/62 98 06/07/19 07:22 06/07/19 07:22 06/07/19 07:22 06/07/19 07:22 06/07/19 07:22 Laboratory Last Values Hgb 10.8 g/dL (12.0-16.0) L 06/07/19 05:26 Hct 31 % (35-47) L 06/07/19 05:26 Plt Count 160 10^3/uL (150-450) 06/07/19 05:26 MPV 7.4 fL (7.4-10.4) 06/07/19 05:26 Sodium 134 mmol/L (135-145) L 06/06/19 06:11 Potassium 3.8 mmol/L (3.5-5.0) 06/06/19 06:11 Chloride 102 mmol/L (101-111) 06/06/19 06:11 Carbon Dioxide 27 mmol/L (22-32) 06/06/19 06:11 Anion Gap 5 mmol/L (2-11) 06/06/19 06:11 BUN 8 mg/dL (6-24) 06/06/19 06:11 Creatinine 0.71 mg/dL (0.51-0.95) 06/06/19 06:11 Est GFR ( Amer) 100.9 (>60) 06/06/19 06:11 Est GFR (Non-Af Amer) 83.4 (>60) 06/06/19 06:11 BUN/Creatinine Ratio 11.3 (8-20) 06/06/19 06:11 Glucose 109 mg/dL (70-100) H 06/06/19 06:11 Calcium 8.1 mg/dL (8.6-10.3) L 06/06/19 06:11 incision: c/d; dressing changed PE: NVI Assessment: s/p right LEI; POD#2 Plan: 1) Eliquis BID for DVT prophylaxis 2) WBAT- PT/OT 3) Home today; f/u with Dr. Kat in 2 weeks
[2019-06-07] MEDS: Magnesium Hydroxide LIQ* 30 ML UDC PO SCH (08:15)
[2019-06-07] MEDS: Calcium Carbonate CHEW TAB* 500 MG (TUMS) PO SCH (08:15)
[2019-06-07] MEDS: Docusate CAP* 100 MG PO SCH (08:15)
[2019-06-07] MEDS: Apixaban* 2.5 MG TAB PO SCH (08:16)
[2019-06-07] MEDS: Vitamin THERAPEUTIC TAB PO SCH (08:16)
[2019-06-07] MEDS: Acetaminophen TAB* 325 MG PO SCH (08:16)
--- NOTE | 2019-06-07 13:41 | DS ---
AMENDED REPORT NOW INCLUDES DESIGNATED COSIGNER - ESIGNED BEFORE ADJUSTMENTS DISCHARGE SUMMARY: DATE OF ADMISSION: 06/05/19 DATE OF DISCHARGE: 06/07/19 SURGEON: Ashley Kat MD.* (DICTATED BY ARACELI MISHRA) PRINCIPAL DIAGNOSIS: Severe end-stage osteoarthritis, right hip. DISCHARGE DIAGNOSIS: Severe end-stage osteoarthritis, right hip. DISCHARGE DISPOSITION: Discharged home in stable condition. HISTORY OF PRESENT ILLNESS: Ms. Guzman is a 63-year-old female with severe end- stage osteoarthritis of the right hip. She has failed conservative treatment and elected to proceed with a right total hip arthroplasty. HOSPITAL COURSE: The patient was admitted electively to the hospital on and underwent a right total hip arthroplasty. Postoperatively, she was placed on Eliquis twice a day for DVT prophylaxis. On postoperative day 1, her H and H was 11 and 32; on postoperative day 2, 10 and 31. Her vital signs remained stable. At the time of discharge on 06/07/19, she was ambulating well with the aid of a walker. PHYSICAL EXAM: Upon discharge, she was afebrile. Her vital signs were stable. Her wound was clean and dry. She was able to dorsiflex and plantar flex, has a 2+ dorsalis pedis pulse and intact sensation. She is ambulating well with a walker. DISCHARGE MEDICATIONS: 1. Eliquis 2.5 mg every 12 hours for 4 weeks. 2. Percocet 5/325 one to two tabs every 4 to 6 hours as needed. 3. Flexeril 10 mg tabs 1 every 8 hours as needed for spasms. 4. Colace 100 mg capsules 3 times a day as needed for constipation. 5. Levothyroxine 25 mcg daily. 6. Liothyronine 12.5 mcg a day. DISCHARGE INSTRUCTIONS: She was discharged home in stable condition. She was given Percocet for pain to take every 4 to 6 hours as needed for pain. Eliquis twice a day for 4 weeks for DVT prophylaxis. She was given Colace for constipation, Flexeril for muscle spasm. She is weightbearing as tolerated. Her dressing was changed prior to discharge. On Sunday, she can remove the dressing and shower letting soap and water run over the incision. Do not scrub or submerge the incision in water. She will follow up with Dr. Kat in clinic in 2 weeks. ARACELI MISHRA [id number]/[facility] #: [id number] DEVORA
== END 2019-06-07 10:55 | disposition home or self-care (01) ==
LOC: OR 10:59 → EDSTATUS 13:00 → SSU 14:24
PROVIDERS: ADMIT Orthopaedic Surgery Adult Reconstructive Orthopaedic Surgery; ATTEND Orthopaedic Surgery Adult Reconstructive Orthopaedic Surgery
PROC: 0SR901A Replacement of Right Hip Joint with Metal Synthetic Substitute, Uncemented, Open Approach (ICD-10-PCS; principal; 2019-06-05 14:00)
DX: M16.11 Unilateral primary osteoarthritis, right hip (principal); E03.9 Hypothyroidism, unspecified; Z79.899 Other long term (current) drug therapy; Z88.2 Allergy status to sulfonamides; Z79.01 Long term (current) use of anticoagulants
CPT/HCPCS: 36415; 72170; 80048; 85014; 85018; 85049; 88304; 88311; 93005; 96361; 96365; 96366; 96375; A9270-GY; C1713; C1776; G0378; J2250; J2405; J2704; J2795; J3010